=== PATIENT | male | born 1995 | race African-American/Black ===

== ENCOUNTER 2021-09-01 11:18 | Emergency (ER) | payer MEDICAID ==
[~2021-09-01] VITALS: Ht 175.3 cm; Wt 70.0 kg
[2021-09-01] MEDS ORDERED: CIPR250T4 MT (11:59)
[2021-09-01] MEDS ORDERED: CIPR250S3 MT (11:59)
[2021-09-01 14:16] VITALS: BP 103/65
== END 2021-09-01 14:30 | disposition home or self-care (01) ==
LOC: ER 11:18
DX: R33.9 Retention of urine, unspecified (principal); I10 Essential (primary) hypertension; Z98.890 Other specified postprocedural states; Z88.0 Allergy status to penicillin
CPT/HCPCS: 51702; 99284; A4315

== ENCOUNTER 2021-09-19 05:30 | Emergency (ER) | payer MEDICAID ==
[~2021-09-19] VITALS: Ht 180.3 cm; Wt 73.0 kg
[~2021-09-19 05:30] MED LIST: CIPR250T4 MT
[2021-09-19 06:43] LABS: BASOPHILS % 1.2 % (0.0-2.0); EOSINOPHILS % 4.2 % (0.0-5.0); HEMATOCRIT. 47.9 % (42.0-52.0); LYMPHOCYTES % 39.9 % (20.0-50.0); MEAN CORPUSCULAR HEMOGLOBIN 28.1 pg (28.0-32.0); MONOCYTES % 4.6 % (2.0-8.0); NEUTROPHILS % 50.1 % (40.0-76.0); PLATELET 428 x1000/uL (130-400); RED BLOOD CELL COUNT 5.71 mill/uL (4.7-6.1); RED CELL DISTRIBUTION WIDTH 14.3 % (11.6-14.6)
[2021-09-19 06:49] LABS: CHLORIDE 104 mEq/L (98-107)
[2021-09-19] MEDS ORDERED: MORPHINE SULFATE 4 MG/ML CPJ (NOT FOR IM USE) IV ONE (07:00)
[2021-09-19 08:00] LABS: CLARITY URINE CLEAR (CLEAR); COLOR URINE YELLOW (YELLOW); KETONES URINE NEGATIVE (NEGATIVE); LEUKOCYTE ESTERASE URINE 2+ (NEGATIVE); NITRITE URINE POSITIVE (NEGATIVE); OCCULT BLOOD URINE 1+ (NEGATIVE); PH URINE 5.5 (4.5-8.0); PROTEIN URINE NEGATIVE (NEGATIVE); SPECIFIC GRAVITY URINE 1.006 (1.005-1.030); UROBILINOGEN URINE 0.2 E.U./dL (0.2-1.0)
[2021-09-19] MEDS ORDERED: CIPR-263 MT (13:41)
[2021-09-19 16:30] VITALS: BP 112/60
== END 2021-09-19 19:14 | disposition home or self-care (01) ==
LOC: ER 05:30
DX: R33.9 Retention of urine, unspecified (principal); N39.0 Urinary tract infection, site not specified; I10 Essential (primary) hypertension; G82.20 Paraplegia, unspecified; Z46.6 Encounter for fitting and adjustment of urinary device; Z88.0 Allergy status to penicillin; Z98.890 Other specified postprocedural states
CPT/HCPCS: 36415; 51702; 80053; 81003; 83690; 85025; 87086; 87186; 96374; 99284; J2270

== ENCOUNTER 2021-09-22 03:33 | Emergency (ER) | payer MEDICAID ==
[~2021-09-22] VITALS: Ht 177.8 cm; Wt 77.0 kg
[~2021-09-22 03:33] MED LIST changes: +CIPR-263 MT
[2021-09-22] MEDS ORDERED: KETOROLAC 30MG/ML VIAL IM ONE (04:45)
[2021-09-22] MEDS ORDERED: NAP5EC MT (05:36)
[2021-09-22 09:00] VITALS: BP 111/68
== END 2021-09-22 10:04 | disposition home or self-care (01) ==
LOC: ER 03:33
DX: M54.2 Cervicalgia (principal); I10 Essential (primary) hypertension; Z88.0 Allergy status to penicillin; Z98.890 Other specified postprocedural states
CPT/HCPCS: 93005; 96372; 99283; J1885

== ENCOUNTER 2023-09-11 01:55 | Inpatient (IN) | payer MEDICARE, MEDICAID ==
[~2023-09-11] VITALS: Ht 167.6 cm; Wt 49.9 kg
[~2023-09-11 01:55] MED LIST changes: +BACL20TA PO; -CIPR-263 MT; -CIPR250T4 MT; +DOCU-150 PO; +GABA-532 PO; +POLY119P2 MT
[2023-09-11] MEDS ORDERED: SODIUM CHLORIDE 0.9% 1000ML BAG (SEPSIS BOLUS) IV ONE (03:00)
[2023-09-11] MEDS ORDERED: VANCOMYCIN 1G PREMIX 200 ML IV ONE (03:00)
[2023-09-11] MEDS ORDERED: PIPERACILLIN/TAZ 3.375G PREMIX 50 ML IV ONE (03:00)
[2023-09-11 03:33] LABS: EOSINOPHILS % 2.6 % (0.0-5.0); HEMATOCRIT. 41.2 % (42.0-52.0); HEMOGLOBIN. 13.8 g/dL (14.0-18.0); LYMPHOCYTES % 37.2 % (20.0-50.0); MEAN CORPUSCULAR HEMOGLOBIN 28.3 pg (28.0-32.0); MEAN CORPUSCULAR HGB CONC 33.4 g/dL (31.0-37.0); MEAN CORPUSCULAR VOLUME 84.7 fL (80.0-94.0); MEAN PLATELET VOLUME 7.5 fl (7.4-10.4); MONOCYTES % 6.8 % (2.0-8.0); NEUTROPHILS % 52.4 % (40.0-76.0); PLATELET 249 x1000/uL (130-400); RED BLOOD CELL COUNT 4.87 mill/uL (4.7-6.1); RED CELL DISTRIBUTION WIDTH 14.8 % (11.6-14.6); WHITE BLOOD COUNT 5.3 x1000/uL (4.5-11.0)
[2023-09-11 03:34] LABS: CHLORIDE 108 mEq/L (98-107); INDEX HEMOLYSI 1 (1-3); INDEX ICTERIC 1 (1-4); INDEX LIPEMIC 1 (1-3); POTASSIUM 3.4 mEq/L (3.5-5.1); SODIUM 139 mEq/L (136-145)
[2023-09-11 03:41] LABS: ALANINE AMINOTRANSFERASE 17 IU/L (13-61); ASPARTATE AMINOTRANSFERASE 14 IU/L (15-37); BILIRUBIN TOTAL 0.9 mg/dL (0.1-1.0); CARBON DIOXIDE 24 mEq/L (21-32); CREATININE 0.7 mg/dL (0.6-1.3); GLUCOSE 91 mg/dL (70-105); PROTEIN TOTAL 7.9 g/dL (6.0-8.3); UREA NITROGEN BLOOD 6 mg/dL (7-21)
[2023-09-11 05:07] LABS: CLARITY URINE CLOUDY (CLEAR); COLOR URINE YELLOW (YELLOW); GLUCOSE URINE NEGATIVE (NEGATIVE); KETONES URINE 2+ (NEGATIVE); LEUKOCYTE ESTERASE URINE NEGATIVE (NEGATIVE); NITRITE URINE NEGATIVE (NEGATIVE); OCCULT BLOOD URINE TRACE (NEGATIVE); PH URINE 5.5 (4.5-8.0); PROTEIN URINE NEGATIVE (NEGATIVE); SPECIFIC GRAVITY URINE 1.019 (1.005-1.030); UROBILINOGEN URINE 0.2 E.U./dL (0.2-1.0)
[2023-09-11] MEDS ORDERED: PIPERACILLIN/TAZ 3.375G PREMIX 50 ML IV NR (05:45)
[2023-09-11] MEDS ORDERED: VANCOMYCIN 1G PREMIX 200 ML IV NR (05:45)
[2023-09-11 07:01] LABS: RBC URINE NONE SEEN /hpf (0-2); SQUAMOUS EPITHELIAL CELL URINE RARE /lpf (RARE/1+); WBC URINE 0-2 /hpf (0-2)
[2023-09-11 07:02] LABS: AMORPHOUS SEDIMENT URINE 1+ /lpf; BACTERIA URINE TRACE
[2023-09-11 12:00] VITALS: BP 112/62; PULSE 55; RESP 19; TEMP 97.7
[2023-09-11 12:56] VITALS: BP 112/62; PULSE 55; RESP 18; TEMP 97.7
[2023-09-11] MEDS ORDERED: MORPHINE SULFATE 2 MG/ML CPJ (NOT FOR IM USE) IV PRN (15:45)
[2023-09-11] MEDS ORDERED: HYDROCODONE/ACETAMINOPHEN 5/325MG TABLET PO PRN (15:45)
[2023-09-11 16:00] VITALS: BP 99/60; PULSE 61; RESP 19; TEMP 99
[2023-09-11] MEDS ORDERED: NALOXONE HCL 0.4MG/ML VIAL IV PRN (16:00)
[2023-09-11] MEDS: SODIUM CHLORIDE 0.9% 1,000 ML IV SCH (17:47)
[2023-09-11] MEDS: MEROPENEM 1,000 MG in SODIUM CHLORIDE 0.9% 100 ML IV SCH (17:47)
[2023-09-11 20:00] VITALS: PULSE 71; RESP 18; TEMP 97.8
[2023-09-11] MEDS ORDERED: CEFEPIME HCL 1000MG/VIAL INJ IM SCH (21:00)
[2023-09-11] MEDS ORDERED: ONDANSETRON HCL 4MG/2ML INJ IV PRN (22:45)
[2023-09-12] VITALS: BP 107/69; PULSE 55; RESP 16; TEMP 98.1
[2023-09-12] MEDS: MEROPENEM 1,000 MG in SODIUM CHLORIDE 0.9% 100 ML IV SCH ×3 (01:00→16:56)
[2023-09-12 04:00] VITALS: BP 110/63; PULSE 60; RESP 16; TEMP 98.3
[2023-09-12] MEDS: SODIUM CHLORIDE 0.9% 1,000 ML IV SCH ×2 (05:40→19:55)
[2023-09-12 07:04] LABS: BASOPHILS % 1.1 % (0.0-2.0); EOSINOPHILS % 1.9 % (0.0-5.0); HEMATOCRIT. 38.2 % (42.0-52.0); HEMOGLOBIN. 12.9 g/dL (14.0-18.0); LYMPHOCYTES % 30.7 % (20.0-50.0); MEAN CORPUSCULAR HEMOGLOBIN 28.9 pg (28.0-32.0); MEAN CORPUSCULAR HGB CONC 33.8 g/dL (31.0-37.0); MEAN CORPUSCULAR VOLUME 85.5 fL (80.0-94.0); MEAN PLATELET VOLUME 7.9 fl (7.4-10.4); MONOCYTES % 9.4 % (2.0-8.0); NEUTROPHILS % 56.9 % (40.0-76.0); PLATELET 219 x1000/uL (130-400); RED BLOOD CELL COUNT 4.47 mill/uL (4.7-6.1); RED CELL DISTRIBUTION WIDTH 14.8 % (11.6-14.6); WHITE BLOOD COUNT 4.3 x1000/uL (4.5-11.0)
[2023-09-12 07:49] LABS: CHLORIDE 112 mEq/L (98-107); INDEX HEMOLYSI 1 (1-3); INDEX ICTERIC 1 (1-4); INDEX LIPEMIC 1 (1-3); POTASSIUM 3.8 mEq/L (3.5-5.1); SODIUM 142 mEq/L (136-145)
[2023-09-12 07:56] LABS: CALCIUM 8.6 mg/dL (8.5-10.1); CARBON DIOXIDE 24 mEq/L (21-32); CREATININE 0.6 mg/dL (0.6-1.3); GLUCOSE 79 mg/dL (70-105); UREA NITROGEN BLOOD 5 mg/dL (7-21)
[2023-09-12 08:00] VITALS: BP 122/71; PULSE 53; RESP 18; TEMP 97.8
[2023-09-12] MEDS: ENOXAPARIN 40MG/0.4ML SYR SUBCUT SCH (09:42)
[2023-09-12 12:00] VITALS: BP 121/76; PULSE 68; RESP 18; TEMP 97.6
[2023-09-12] MEDS: BISACODYL 10MG SUPP PR SCH ×2 (14:30→14:46)
[2023-09-12] MEDS: LACTULOSE 20G/30ML UDC PO SCH ×3 (14:46→21:12)
[2023-09-12] MEDS: BACLOFEN 10MG TABLET PO SCH ×2 (14:46→21:12)
[2023-09-12] MEDS: POLYETHYLENE GLYCOL 3350 (17GM) 1 DOSE PACK PO SCH (14:46)
[2023-09-12] MEDS ORDERED: MINERAL OIL ENEMA 133ML PR NR (15:30)
[2023-09-12 16:00] VITALS: BP 119/74; PULSE 52; RESP 18; TEMP 97.5
[2023-09-12] MEDS: DOCUSATE SODIUM 100MG CAPSULE PO SCH (17:25)
[2023-09-12 20:00] VITALS: BP 112/61; PULSE 57; RESP 18; TEMP 98.6
[2023-09-13] VITALS: BP 108/66; PULSE 57; RESP 18; TEMP 98.1
[2023-09-13] MEDS: MEROPENEM 1,000 MG in SODIUM CHLORIDE 0.9% 100 ML IV SCH ×3 (00:32→17:51)
[2023-09-13 04:00] VITALS: BP 106/56; PULSE 77; RESP 18; TEMP 97.9
[2023-09-13] MEDS: BACLOFEN 10MG TABLET PO SCH ×3 (06:21→21:15)
[2023-09-13 08:00] VITALS: BP 117/68; PULSE 63; RESP 20; TEMP 98.2
[2023-09-13] MEDS: SODIUM CHLORIDE 0.9% 1,000 ML IV SCH ×2 (09:15→22:35)
[2023-09-13] MEDS: ENOXAPARIN 40MG/0.4ML SYR SUBCUT SCH (10:06)
[2023-09-13] MEDS: POLYETHYLENE GLYCOL 3350 (17GM) 1 DOSE PACK PO SCH (10:06)
[2023-09-13] MEDS: DOCUSATE SODIUM 100MG CAPSULE PO SCH ×2 (10:07→17:59)
[2023-09-13] MEDS: LACTULOSE 20G/30ML UDC PO SCH ×2 (10:07→13:00)
[2023-09-13] MEDS: BISACODYL 10MG SUPP PR SCH (10:07)
[2023-09-13] MEDS ORDERED: NA PHOS,M-B/NA PHOS,DI-BA ENEMA 118ML PR NR (13:00)
[2023-09-13] MEDS ORDERED: NA PHOS,M-B/NA PHOS,DI-BA ENEMA 118ML PR ONE (13:45)
[2023-09-13] MEDS ORDERED: SENNOSIDES 8.6MG TABLET PO PRN (14:45)
[2023-09-13 20:00] VITALS: BP 107/62; PULSE 71; RESP 18; TEMP 98.8
[2023-09-14] VITALS: BP 105/60; PULSE 68; RESP 18; TEMP 98.2
[2023-09-14] MEDS: MEROPENEM 1,000 MG in SODIUM CHLORIDE 0.9% 100 ML IV SCH ×2 (01:00→09:00)
[2023-09-14 04:00] VITALS: BP 105/63; PULSE 72; RESP 18; TEMP 97.5
[2023-09-14] MEDS: BACLOFEN 10MG TABLET PO SCH ×3 (06:45→21:17)
[2023-09-14 07:03] LABS: BASOPHILS % 0.5 % (0.0-2.0); EOSINOPHILS % 2.4 % (0.0-5.0); HEMATOCRIT. 36.8 % (42.0-52.0); HEMOGLOBIN. 12.6 g/dL (14.0-18.0); LYMPHOCYTES % 16.9 % (20.0-50.0); MEAN CORPUSCULAR HEMOGLOBIN 28.8 pg (28.0-32.0); MEAN CORPUSCULAR HGB CONC 34.4 g/dL (31.0-37.0); MEAN CORPUSCULAR VOLUME 83.8 fL (80.0-94.0); MEAN PLATELET VOLUME 7.8 fl (7.4-10.4); NEUTROPHILS % 75.2 % (40.0-76.0); PLATELET 190 x1000/uL (130-400); RED BLOOD CELL COUNT 4.39 mill/uL (4.7-6.1); RED CELL DISTRIBUTION WIDTH 14.2 % (11.6-14.6); WHITE BLOOD COUNT 7.8 x1000/uL (4.5-11.0)
[2023-09-14 08:00] VITALS: BP 127/76; PULSE 52; RESP 19; TEMP 97.7
[2023-09-14] MEDS: POLYETHYLENE GLYCOL 3350 (17GM) 1 DOSE PACK PO SCH (08:58)
[2023-09-14] MEDS: DOCUSATE SODIUM 100MG CAPSULE PO SCH ×2 (08:58→17:00)
[2023-09-14] MEDS: BISACODYL 10MG SUPP PR SCH (08:58)
[2023-09-14 08:59] LABS: CHLORIDE 107 mEq/L (98-107); INDEX HEMOLYSI 1 (1-3); INDEX ICTERIC 1 (1-4); INDEX LIPEMIC 1 (1-3); POTASSIUM 3.5 mEq/L (3.5-5.1); SODIUM 139 mEq/L (136-145)
[2023-09-14] MEDS: ENOXAPARIN 40MG/0.4ML SYR SUBCUT SCH (09:00)
[2023-09-14] MEDS ORDERED: LACTULOSE 20G/30ML UDC PO SCH (09:00)
[2023-09-14 09:05] LABS: CALCIUM 8.7 mg/dL (8.5-10.1); CARBON DIOXIDE 26 mEq/L (21-32); CREATININE 0.7 mg/dL (0.6-1.3); GLUCOSE 81 mg/dL (70-105); UREA NITROGEN BLOOD 3 mg/dL (7-21)
[2023-09-14] MEDS: SODIUM CHLORIDE 0.9% 1,000 ML IV SCH (11:55)
[2023-09-14 12:00] VITALS: BP 95/50; PULSE 80; RESP 18; TEMP 97.9
[2023-09-14 16:00] VITALS: BP 106/74; PULSE 56; RESP 19; TEMP 97.7
[2023-09-14] MEDS ORDERED: CIPR-263 MT (16:26)
[2023-09-14] MEDS ORDERED: DOCU-150 PO (16:26)
[2023-09-14] MEDS ORDERED: BISA10SU62 RC (16:26)
[2023-09-14 20:52] VITALS: BP 122/80; PULSE 60; TEMP 96.6; O2SAT 97
== END 2023-09-14 21:31 | disposition home health service (06) | DRG 698 ==
LOC: ER 01:55 → 6EST 06:09 → EDBEDREQTM 06:33 → EDBEDREQ 06:33 → ENRESERV 10:23
PROVIDERS: ADMIT Internal Medicine; ATTEND Internal Medicine
DX: T83.518A Infection and inflammatory reaction due to other urinary catheter, initial encounter (principal); G82.50 Quadriplegia, unspecified; N39.0 Urinary tract infection, site not specified; K56.49 Other impaction of intestine; K59.2 Neurogenic bowel, not elsewhere classified; N20.0 Calculus of kidney; K56.41 Fecal impaction; N31.9 Neuromuscular dysfunction of bladder, unspecified; E87.6 Hypokalemia; K62.89 Other specified diseases of anus and rectum; F10.10 Alcohol abuse, uncomplicated; Z82.49 Family history of ischemic heart disease and other diseases of the circulatory system; Z79.899 Other long term (current) drug therapy; Z88.0 Allergy status to penicillin; Z95.828 Presence of other vascular implants and grafts; Z86.718 Personal history of other venous thrombosis and embolism; Y84.8 Other medical procedures as the cause of abnormal reaction of the patient, or of later complication, without mention of misadventure at the time of the procedure; Y92.89 Other specified places as the place of occurrence of the external cause
CPT/HCPCS: 36415; 71045; 74176; 80048; 80053; 81003; 83605; 84145; 85025; 93005; 97112; 97162; 97166; 99285; J1650; J2185; J2405; J2543; J3370; J7030; J7050

== ENCOUNTER 2024-08-24 02:20 | Emergency (ER) | payer MEDICARE, MEDICAID ==
[~2024-08-24] VITALS: Ht 175.3 cm; Wt 45.0 kg
[~2024-08-24 02:20] MED LIST changes: +BISA10SU62 RC; +LINE600T11 MT; +SULF1TAB48 MT
[2024-08-24 02:25] VITALS: O2SAT 98
[2024-08-24 09:54] VITALS: BP 114/70; PULSE 72; RESP 18; TEMP 36.78072; O2SAT 98
== END 2024-08-24 10:07 | disposition home or self-care (01) ==
LOC: ER 02:20
DX: T85.628A Displacement of other specified internal prosthetic devices, implants and grafts, initial encounter (principal); N31.9 Neuromuscular dysfunction of bladder, unspecified; Z88.0 Allergy status to penicillin; Z79.899 Other long term (current) drug therapy; X58.XXXA Exposure to other specified factors, initial encounter
CPT/HCPCS: 51702; 99284

== ENCOUNTER 2024-09-17 22:49 | Emergency (ER) | payer MEDICARE, MEDICAID ==
[~2024-09-17] VITALS: Ht 152.4 cm; Wt 65.0 kg
[2024-09-17 23:06] VITALS: O2SAT 97
[2024-09-18 11:49] VITALS: BP 117/67; PULSE 56; RESP 19; TEMP 36.89184; O2SAT 100
== END 2024-09-18 11:58 | disposition home or self-care (01) ==
LOC: ER 22:49
DX: T83.098A Other mechanical complication of other urinary catheter, initial encounter (principal); Z88.0 Allergy status to penicillin; Z87.440 Personal history of urinary (tract) infections; Z79.899 Other long term (current) drug therapy; X58.XXXA Exposure to other specified factors, initial encounter
CPT/HCPCS: 99285

== ENCOUNTER 2024-09-20 19:06 | Emergency (ER) | payer MEDICARE, MEDICAID ==
[~2024-09-20] VITALS: Ht 172.7 cm; Wt 69.0 kg
[2024-09-20 19:09] VITALS: TEMP 96.5; O2SAT 97
[2024-09-21 11:38] VITALS: BP 112/78; PULSE 64; RESP 18; O2SAT 99
== END 2024-09-21 11:53 | disposition home or self-care (01) ==
LOC: ER 19:06
DX: Z46.6 Encounter for fitting and adjustment of urinary device (principal); Z87.440 Personal history of urinary (tract) infections; Z79.899 Other long term (current) drug therapy; Z88.0 Allergy status to penicillin
CPT/HCPCS: 99283

== ENCOUNTER 2025-11-08 04:47 | Emergency (ER) | payer MEDICARE, MEDICAID ==
[~2025-11-08] VITALS: Ht 167.6 cm; Wt 69.0 kg
[~2025-11-08 04:47] MED LIST changes: -DOCU-150 PO; +DOCU-422 PO; +GABA-1180 PO; -GABA-532 PO; -LINE600T11 MT; -POLY119P2 MT; -SULF1TAB48 MT
[2025-11-08 04:48] VITALS: TEMP 98.5; O2SAT 98
[2025-11-08 05:20] VITALS: BP 100/70; PULSE 49; RESP 16; O2SAT 97
== END 2025-11-08 06:45 | disposition home or self-care (01) ==
LOC: ER 04:47
DX: T83.010A Breakdown (mechanical) of cystostomy catheter, initial encounter (principal); N32.0 Bladder-neck obstruction; G82.50 Quadriplegia, unspecified; Z87.440 Personal history of urinary (tract) infections; Z79.899 Other long term (current) drug therapy; Z88.1 Allergy status to other antibiotic agents; Z88.0 Allergy status to penicillin; Y73.2 Prosthetic and other implants, materials and accessory gastroenterology and urology devices associated with adverse incidents; Y92.89 Other specified places as the place of occurrence of the external cause
CPT/HCPCS: 51705; 99284